=== PATIENT | female | born 1950 | race Caucasian/White ===

== ENCOUNTER 2020-10-03 16:01 | Outpatient (CLI) | payer BC, SELFPAY | END 2020-10-03 16:02 | disposition home or self-care (01) | LOC: ANHCOVIDVC 16:01 | PROVIDERS: PCP Family Medicine; Visit Provider Family Medicine | DX: Z23 Encounter for immunization (principal) | CPT/HCPCS: 0001A; 91300 ==

== ENCOUNTER 2020-10-24 16:06 | Outpatient (CLI) | payer BC, SELFPAY | END 2020-10-24 16:07 | disposition home or self-care (01) | LOC: ANHCOVIDVC 16:06 | PROVIDERS: PCP Family Medicine | DX: Z23 Encounter for immunization (principal) | CPT/HCPCS: 0002A; 91300 ==